=== PATIENT | female | born 1960 | race Caucasian/White ===

== ENCOUNTER 2016-07-09 17:38 | Emergency (ER) | payer OTHER ==
[~2016-07-09] VITALS: Ht 154.9 cm; Wt 63.5 kg
--- NOTE | 2016-07-09 17:55 | NUR ---
PT BIB FAMILY C/O FEVER, GENERALIZED BODY ACHES, AND HEAD "PRESSURE" SINCE YESTERDAY. DENIES N/V/D. DENIES CP. NO VISUAL CHANGES. NO NEURO DEFICITS. NAD NOTED. AMBULATORY WITH STEADY GAIT. RESP EVEN UNLABORED. SKIN WARM NONDIAPHORETIC. IN ER BED 21.
[2016-07-09] MEDS ORDERED: IV NS 0.9% 1,000 ML ONE (18:17)
[2016-07-09] MEDS ORDERED: KETOROLAC TROMETHAMINE INJ 30 MG/ML VIAL ONE (18:17)
[2016-07-09] MEDS ORDERED: IV SET PRIMARY 1 EA INFUS.SET MC ONE (18:17)
[2016-07-09] MEDS ORDERED: ONDANSETRON HCL/PF 4 MG/2 ML VIAL ONE (18:17)
[2016-07-09 18:25] LABS: BASOPHILS # (AUTO) 0.1 /CMM (0.0-0.2); EOSINOPHILS % (AUTO) 0.6 % (0.0-6.0); HEMATOCRIT 40 % (33-45); HEMOGLOBIN 13.7 g/dL (11.5-14.8); LYMPHOCYTES # (AUTO) 0.4 /CMM (0.8-4.8); LYMPHOCYTES % (AUTO) 7.8 % (20.0-44.0); MEAN CORPUSCULAR HEMOGLOBIN 30 PG (26.0-33.0); MEAN CORPUSCULAR HGB CONC 34 g/dl (31.0-36.0); MEAN CORPUSCULAR VOLUME 88 fL (82-100); MONOCYTES # (AUTO) 0.3 /CMM (0.1-1.30); NEUTROPHILS # (AUTO) 4.4 /CMM (1.8-8.9); NEUTROPHILS % (AUTO) 85.6 % (43.0-81.0); PLATELET COUNT (AUTO) 270 /CMM (150-450); RDW COEFFICIENT OF VARIATION 11.6 (11.5-15.0); RED BLOOD CELL COUNT(AUTO) 4.55 MIL/uL (4.0-5.2); WHITE BLOOD COUNT (AUTO) 5.3 K/uL (4.3-11.0)
[2016-07-09] MEDS: IV NS 0.9% 1,000 ML BAG IV ONE (18:32)
[2016-07-09] MEDS: KETOROLAC TROMETHAMINE INJ 30 MG/ML VIAL IV ONE (18:32)
[2016-07-09] MEDS: ONDANSETRON HCL/PF - ER 4 MG/2 ML VIAL IV ONE (18:32)
[2016-07-09 18:34] LABS: CALCIUM, SERUM 9.7 mg/dL (8.5-10.1)
[2016-07-09 18:40] LABS: ALBUMIN 3.8 g/dL (3.4-5.0); BILIRUBIN,TOTAL 0.3 mg/dL (0.2-1.0); TOTAL PROTEIN, SERUM 7.1 g/dL (6.4-8.2)
--- NOTE | 2016-07-09 18:57 | NUR ---
RESTING QUIETLY IN BED, NAD NOTED. ALL NEEDS ATTENDED TO. FAMILY AT BEDSIDE.
[2016-07-09 18:59] LABS: APPEARANCE,URINE Clear (CLEAR); BILIRUBIN,URINE Negative (NEGATIVE); BLOOD, URINE Trace-intact Ery/uL (NEGATIVE); COLOR,URINE Yellow (YELLOW); KETONES,URINE Negative (NEGATIVE); LEUKOCYTE ESTERASE ,URINE Negative (NEGATIVE); NITRITE, URINE Negative (NEGATIVE); PH,URINE 8.5 (5.0-8.0); PROTEIN,URINE Negative (NEGATIVE); UGLUCOSE Negative (NEGATIVE); UROBILINOGEN,URINE 0.2 EU/dL (0.2)
[2016-07-09 19:28] LABS: ADD URINE CULTURE NO; BACTERIA,URINE None seen /HPF (None Seen); SQUAMOUS EPITHELIAL CELL,UR Few /HPF (None Seen); WBC,URINE 0-2 /HPF (0-3)
--- NOTE | 2016-07-09 19:48 | NUR ---
ALTERATION MANAGER AT BEDSIDE. CONTINUES TO REPORT PAIN; ORDER FOR MORPHINE RECEIVED. ALL NEEDS ATTENDED TO.
[2016-07-09] MEDS ORDERED: ACETAMINOPHEN ES 500 MG TABLET ONE (19:50)
[2016-07-09] MEDS ORDERED: MORPHINE SULFATE INJ 4 MG/ML DISP.SYRIN ONE (19:50)
[2016-07-09] MEDS: MORPHINE SULFATE INJ 2 MG/ML DISP.SYRIN IV ONE (19:57)
[2016-07-09] MEDS: ACETAMINOPHEN ES 500 MG TABLET PO ONE (19:57)
--- NOTE | 2016-07-09 19:58 | NUR ---
PT TRANSPORTED TO RADIOLOGY AFTER MEDICATION ADMIN IN STABLE CONDITION
[2016-07-09] MEDS ORDERED: LIDOCAINE HCL/PF 1% 30 ML SDV ONE (21:34)
--- NOTE | 2016-07-09 21:36 | NUR ---
JESS MARSHALL OBTAINED INFORMED CONSENT FOR LP. DR RENNER AT BEDSIDE TO PERFORM LUMBAR PUNCTURE.
--- NOTE | 2016-07-09 22:11 | NUR ---
PT HAD EPISODE OF VASOVAGAL RESPONSE, PER [employer] DEGRASSE. WAS REASSESSED BY COMPANY [employer]. NOW RESTING QUIETLY, NAD NOTED.
--- NOTE | 2016-07-09 22:53 | NUR ---
RESTING QUIETLY, NAD NOTED. VSS. COLOR GOOD, SKIN WARM NONDIAPHORETIC. ALL NEEDS ATTENDED TO.
[2016-07-09 23:24] LABS: CSF GLUCOSE 62 mg/dL (40-70); CSF PROTEIN 37.9 mg/dL (15-45)
--- NOTE | 2016-07-09 23:58 | NUR ---
Patient discharged to home in stable condition. Written and verbal after care instructions given. Patient verbalizes understanding of instruction. IV removed. Catheter intact and site benign. Pressure and 4x4 applied to site. No bleeding noted. AMBULATORY WITH STEADY GAIT. COPIES OF ALL LABS AND IMAGING PROVIDED.
[2016-07-10 00:01] LABS: CSF APPEARANCE CLEAR (CLEAR); CSF COLOR COLORLESS (COLORLESS); CSF WHITE BLOOD CELL COUNT 0 /cumm (0-5); CSF WHITE BLOOD CELL COUNT 2 /cumm (0-5)
[2016-07-10 00:13] VITALS: BP 102/65
== END 2016-07-09 23:58 | disposition home or self-care (01) ==
LOC: ER 17:41
DX: R51 Headache (principal); F17.200 Nicotine dependence, unspecified, uncomplicated
CPT/HCPCS: 36415; 70450-TC; 71020-TC; 80053-TC; 81000-TC; 85025-TC; 87070-TC; 87400; 89051-TC; A4606; J1885; J2270; J2405; J3490; J7030; Z7610

== ENCOUNTER 2017-03-18 11:39 | Emergency (ER) | payer OTHER ==
[~2017-03-18] VITALS: Ht 162.6 cm; Wt 76.7 kg
[2017-03-18 11:46] VITALS: BP 135/81
== END 2017-03-18 12:08 | disposition home or self-care (01) ==
LOC: ER 11:43
DX: J32.9 Chronic sinusitis, unspecified (principal); F17.200 Nicotine dependence, unspecified, uncomplicated
CPT/HCPCS: A4606; Z7610

== ENCOUNTER 2017-05-08 18:27 | Emergency (ER) | payer OTHER ==
[~2017-05-08] VITALS: Ht 162.6 cm; Wt 65.8 kg
--- NOTE | 2017-05-08 18:42 | NUR ---
HEADACHE, DIZZINESS, NAUSEA STARTED 1 HR AGO SHIVERING, FEELS COLD NAD NOTED, VSS, RESP EVEN AND UNLABORED, PT PUT ON MONITOR, MD AT BS.
--- NOTE | 2017-05-08 19:18 | NUR ---
BLOOD COLLECTED SENT TO LAB
--- NOTE | 2017-05-08 19:19 | NUR ---
EKG AT BS
[2017-05-08 19:20] LABS: BASOPHILS % (AUTO) 0.6 % (0.0-2.0); EOSINOPHILS # (AUTO) 0.2 /CMM (0.0-0.7); EOSINOPHILS % (AUTO) 2.4 % (0.0-6.0); HEMATOCRIT 42 % (33-45); HEMOGLOBIN 14.8 g/dL (11.5-14.8); LYMPHOCYTES # (AUTO) 1.8 /CMM (0.8-4.8); LYMPHOCYTES % (AUTO) 25.6 % (20.0-44.0); MEAN CORPUSCULAR HEMOGLOBIN 31 PG (26.0-33.0); MEAN CORPUSCULAR HGB CONC 36 g/dl (31.0-36.0); MEAN CORPUSCULAR VOLUME 87 fL (82-100); MONOCYTES # (AUTO) 0.4 /CMM (0.1-1.30); MONOCYTES % (AUTO) 5.5 % (2.0-12.0); NEUTROPHILS # (AUTO) 4.6 /CMM (1.8-8.9); NEUTROPHILS % (AUTO) 65.9 % (43.0-81.0); PLATELET COUNT (AUTO) 376 /CMM (150-450); RDW COEFFICIENT OF VARIATION 11.8 (11.5-15.0); RED BLOOD CELL COUNT(AUTO) 4.78 MIL/uL (4.0-5.2)
[2017-05-08] MEDS ORDERED: MECLIZINE HCL 25 MG TABLET ONE (19:21)
[2017-05-08 19:29] LABS: CALCIUM, SERUM 10.5 mg/dL (8.5-10.1); CREATININE 0.9 mg/dL (0.6-1.3); POTASSIUM 3.8 mmol/L (3.5-5.1)
[2017-05-08] MEDS: MECLIZINE HCL 12.5 MG TABLET PO ONE (19:55)
[2017-05-08] MEDS: PROCHLORPERAZINE EDISYLATE 10 MG/2 ML VIAL IVP ONE (21:00)
[2017-05-08] MEDS ORDERED: PROCHLORPERAZINE EDISYLATE 10 MG/2 ML VIAL ONE (21:00)
[2017-05-08] MEDS: METOCLOPRAMIDE HCL 10 MG/2 ML VIAL IV ONE (21:00)
[2017-05-08] MEDS ORDERED: diphenhydrAMINE HCL 25 MG CAPSULE ONE (21:01)
[2017-05-08] MEDS: DIPHENHYDRAMINE HCL 12.5 MG/5 ML UDC PO ONE (21:05)
[2017-05-08 21:35] VITALS: BP 125/87
== END 2017-05-08 21:39 | disposition home or self-care (01) ==
LOC: ER 18:29
DX: R42 Dizziness and giddiness (principal); E78.00 Pure hypercholesterolemia, unspecified; F17.200 Nicotine dependence, unspecified, uncomplicated
CPT/HCPCS: 36415; 70450-TC; 80048-TC; 85025-TC; A4606; J0780; J8597; Q0163; Z7610

== ENCOUNTER 2017-08-21 19:42 | Emergency (ER) | payer SELFPAY ==
[~2017-08-21] VITALS: Ht 160 cm; Wt 69.9 kg
[2017-08-21 19:54] VITALS: BP 140/89
[2017-08-21] MEDS ORDERED: ACETAMINOPHEN 325 MG TABLET ONE (20:56)
[2017-08-21] MEDS ORDERED: ACETAMINOPHEN 650 MG/20.3 ML UDC PO ONE (21:00)
== END 2017-08-21 22:04 | disposition home or self-care (01) ==
LOC: ER 19:42
DX: J06.9 Acute upper respiratory infection, unspecified (principal); F17.200 Nicotine dependence, unspecified, uncomplicated; E78.5 Hyperlipidemia, unspecified
CPT/HCPCS: 71045-TC; A4606; Z7610